=== PATIENT | female | born 1980 | race Caucasian/White ===

== ENCOUNTER 2016-06-10 12:24 | Outpatient (CLI) | payer OTHER ==
[~2016-06-10] VITALS: Ht 152.4 cm; Wt 76.2 kg
[2016-06-10] MEDS ORDERED: PRENAT PO (12:34)
[2016-06-10 12:35] VITALS: Ht 152.4 cm; Wt 76.2 kg
[2016-06-10 12:36] VITALS: BP 111/59; PULSE 92; RESP 18
[2016-06-10] MEDS ORDERED: LACTATED RINGER'S 1,000 ML IV* SCH (13:00)
[2016-06-10] MEDS ORDERED: ACETAMINOPHEN 325 MG TAB PO ONE (13:00)
[2016-06-10 14:32] LABS: BARBITURATES Negative (NEGATIVE); BENZODIAZEPINES Negative (NEGATIVE); CANNABINOIDS Negative (NEGATIVE); COCAINE Negative (NEGATIVE)
[2016-06-10 14:43] LABS: OPIATES Negative (NEGATIVE)
[2016-06-10] MEDS ORDERED: TERBUTALINE 1 ML ONE (14:47)
--- NOTE | 2016-06-10 14:48 | RADRPT ---
PROCEDURE: US evaluation of placenta and cervix. CLINICAL INDICATION: labor at 31 weeks gestational age. Abdominal trauma. TECHNIQUE: Multiple sonographic images of the gravid uterus were obtained utilizing brooks-scale lizz ging. Sagittal and transverse images were obtained. Transvaginal sonography of the cervix was also performed. The images were reviewed on a PACS workstation. The placenta was evaluated. COMPARISON: No prior studies are available for comparison. FINDINGS: There is a single live intrauterine . heart rate is 144 beats per minute. Position is cephalic and placenta is fundal grade II. There is no placenta previa or abruption. Transvaginal cervical length is 4.0 cm. IMPRESSION: 1. Placenta is fundal grade II with no abruption or previa. 2. Cervical length is 4.0 cm. RPTAT: QQ .Ghanshyam Yi MD, Date Time Electronically viewed and signed by .Ghanshyam Yi MD, on 06/10/2016 14:48 .R/
[2016-06-10] MEDS ORDERED: TERBUTALINE 1 MG/ML INJ SC ONE (15:00)
--- NOTE | 2016-06-12 13:00 | CONS ---
Date/Time of Note Date/Time of Note DATE: 06/12/16 TIME: 12:44 Consultation Date/Type/Reason Admit Date/Time June 12, 2016 Date of Consultation: Jun 10, 2016 Type of Consultation: OB Triage Reason for Consultation 31 weeks and fall This patient is 35 years old 13 para 7 induced 3 SAB 2. She came to triage due to fall at home She states that she fell on her back and not on her abdomen No complaint of bleeding. She is mostly complaining of her back pain The fall happened last night, however she did not have any complaint at that time. But this morning she started aching and pain of lower back . For that reason she came to triage area. Subjective hx not possible: pt non-verbal Eyes: no complaints ENT: no complaints Respiratory: no complaints Cardiovascular: no complaints Gastrointestinal: no complaints Genitourinary: bleeding, no complaints Musculoskeletal: back pain (slight back pain), no complaints Skin: no complaints Neurologic: no complaints Endocrine: no complaints Lymphatic: no complaints Psychological: nl mood/affect, no complaints Immunologic: immunodeficiency, no complaints Additional Comments On physical exam she was basically comfortable her BP was 111/59 pulse rate and respirations were normal. Due to occasional contractions that she had IV hydration was started. An ultrasound was performed and the cervical her length was 4 cm . Kleihauer-Betke stain test was reported negative. Her contractions gradually subsided and heart tones were normal . She had no contraction after an hour. Patient was discharged home with instruction to rest and to make an appointment with her sod stripper in 3 days. Current Medications Medications (Trade) Dose Ordered Sig/Geronimo Route PRN Reason Start Time Stop Time Status Last Admin Dose Admin Lactated Ringer's (Lr) 1,000 ml @ 125 mls/hr Q8H IV* 06/10/16 13:00 06/10/16 15:59 DC 06/10/16 13:15 125 MLS/HR Acetaminophen (Tylenol Tab) 650 mg ONCE ONCE PO 06/10/16 13:00 06/10/16 13:01 DC 06/10/16 13:26 650 MG Terbutaline Sulfate 0.25 mg 0.25 mg ONCE ONCE SC 06/10/16 15:00 06/10/16 15:01 DC 06/10/16 14:50 0.25 MG Terbutaline Sulfate (Brethine) 1 ml @ ud STK-MED ONCE .ROUTE 06/10/16 14:47 06/10/16 14:48 DC Social History Smoking Status: Never smoker Exam/Review of Systems Vital Signs Vitals Vital Signs Date Time Temp Pulse Resp B/P Pulse Ox O2 Delivery O2 Flow Rate FiO2 06/10/16 12:36 97.7 92 18 111/59 100 Room Air BRANDON PETERS MD Jun 12, 2016 12:55
== END 2016-06-10 15:58 | disposition home or self-care (01) ==
LOC: L-D 12:24 → OBT 12:24
DX: O26.893 Other specified pregnancy related conditions, third trimester (principal); M54.5 Low back pain; Z3A.31 31 weeks gestation of pregnancy; W18.30XA Fall on same level, unspecified, initial encounter; Y92.009 Unspecified place in unspecified non-institutional (private) residence as the place of occurrence of the external cause
CPT/HCPCS: 36415; 76815; 76817; 80307; 85460; 96360; 96361; J3105; J7120; Z7500; Z7610; G0463